=== PATIENT | female | born 1950 | race Caucasian/White ===

== ENCOUNTER 2019-10-17 14:57 | Outpatient (CLI) | payer MEDICARE ==
[~2019-10-17 14:57] MED LIST: Magnevist 469MG/ML 20 ML VIAL ONE
--- NOTE | 2019-10-17 16:46 | MRI ---
MRI Lumbar Spine with and without IVcontrast: HISTORY: Low back pain since falling in 2017. Vertebral body compression fractures. History of prior kyphoplas ty. COMPARISON: CT lumbar spine on 06/10/2019 FINDINGS: Increased T2-weighted signal intensity lesions are seen in the right kidney which do not demonstrate enhancement after the administration of intravenous contrast and are likely related to renal cysts. Remainder of the visualized retroperitoneal structures demonstrate a normal MRI appearance. Conus medullaris is normal in morphology and terminates at the L1 level. There are vertebroplasty changes seen involving the T11, T12, L2, L3, L4, and L5 vertebral bodies als o noted on the prior CT scan lumbar spine. A burst fracture of the L1 vertebral body is again seen with retropulsion of the posterior superior endplate of the vertebral body. There does appear to be s lightly greater degree of height loss involving the L1 vertebral body anteriorly and centrally. There is mild increased signal intensity seen on fluid sensitive sequences along the superior endplat e of the L1 vertebral body with corresponding decreased T1-weighted signal intensity suggesting edema. Findings are likely related to a chronic burst type fracture with superimposed more recent ass ociated compression fracture along the anterior endplate. The degree of height loss centrally is greater than 75%. T12-L1 level: Retropulsion of the anterior superior endplate is present as described above which effa dimitri the ventral subarachnoid space. Right neural foramen is present with minimal left neural foraminal narrowing. L1-2: Minimal disc osteophyte complex is present. Central spinal canal and neural foramina are patent at this level. L2-3: Loss of intervertebral disc height. Broad-based disc osteophyte complex is present with mild fa cet hypertrophic changes. Left neural foramen is patent with mild right-sided neural foraminal narrowing. There is no significant central canal narrowing present. L3-4: Disc osteophyte complex and facet hypertrophic changes are noted. There is prominence of the ep idural fat posteriorly. These findings result in severe narrowing of the thecal sac. Severe right-sided neural foraminal narrowing with mild to moderate left-sided neural foraminal narrowing is present. L4-5: Minimal disc osteophyte complex. Prominence of epidural fat is seen posteriorly. There is ligam entous thickening and prominent facet hypertrophic changes. Findings result in generalized concentric narrowing of the thecal sac which is [id number] in degree. L5-S1: Minimal disc osteophyte complex is present. Facet hypertrophic changes are noted. Findings res ult in mild left-sided neural foraminal narrowing. The right neural foramen and central canal are patent. There is minimal enhancement seen in the region of the marrow edema of the L1 vertebral body likely a ttributable to the edema and more recent nature of the fracture superimposed on more chronic burst fracture. No additional areas of abnormal enhancement are seen. IMPRESSION: 1. Burst fracture L1 vertebral body with questionable slight increase loss of height centrally. There is mild edema along the superior endplate L1 vertebral body suggesting a degree of more recent compression fracture superimposed on a chronic burst fracture. 2. Multilevel compression fractures of lower thoracic and lumbar vertebral bodies with evidence of pr ior vertebroplasty/kyphoplasty procedures. 3. Multilevel degenerative changes as described above.
== END 2019-10-17 14:58 | disposition home or self-care (01) ==
LOC: BICMRI 14:57
PROVIDERS: ATTEND Neurological Surgery
DX: S32.011A Stable burst fracture of first lumbar vertebra, initial encounter for closed fracture (principal); M47.816 Spondylosis without myelopathy or radiculopathy, lumbar region; R60.0 Localized edema
CPT/HCPCS: 72158; 82565; A9579

== ENCOUNTER 2020-07-30 13:11 | Outpatient (CLI) | payer MEDICARE ==
--- NOTE | 2020-07-30 14:41 | MRI ---
MRI LUMBAR SPINE NONCONTRAST: HISTORY: Lumbar compression fracture. Previous vertebroplasty. Pain x20 years. COMPARISON: 10/17/2019 FINDINGS: There are T1 and T2 hypointense lesions at T11, T12, L1, L2, L3, L4 and L5 compatible with previous v ertebroplasty change. When compared to the prior exam, vertebral body height is maintained. There is no fracture. There is edema involving the superior aspect of T12 and anterior aspect of L1. Is appropriate signal intensity visualized paraspinal muscles. Multiple right renal cortical cysts ar e noted. Conus medullaris terminates at the T12-L1 disc space. T12-L1:Disc desiccation with mild loss of disc space height. No significant central canal stenosis. M oderate bilateral neural foraminal narrowing L1 vertebral body: Retropulsion with resultant mild to moderate central canal stenosis. L1-L2:Adequate disc hydration. No significant posterior disc abnormality. No significant central selma l stenosis. Moderate bilateral neural foraminal narrowing. L2 vertebral body: Mild retropulsion due to loss of vertebral body height, unchanged. L2-L3:Stable desiccation with mild loss of disc space height. Broad-based disc bulge, ligament flavum thickening and facet hypertrophy result in moderate central canal stenosis. Moderate right and [id number] left neural foraminal narrowing. L3-L4:Adequate disc hydration. No significant loss of disc space height. Broad-based disc bulge, liga ment flavum thickening and facet hypertrophy result in moderate central canal stenosis. Moderate to severe right and moderate left neural foraminal narrowing. L4-L5:Adequate disc hydration. No significant loss of disc space height. Broad-based disc bulge, liga ment flavum thickening and facet appears result in mild central canal stenosis. Moderate bilateral neural foraminal narrowing. L5-S1:Adequate disc hydration. No posterior disc abnormalities. There is bilateral facet hypertrophy. No significant central canal stenosis. Right neural foramen is patent. Mild left foraminal narrowing. IMPRESSION: 1. Redemonstration of extensive vertebroplasty from T11 through L5. Stable loss of vertebral body hei ght and retropulsion at L1 and L2. 2. Varying degrees of central canal stenosis and neural foraminal narrowing as detailed above. Transcribed Date/Time: 07/30/2020 3:31 PM
== END 2020-07-30 13:12 | disposition home or self-care (01) ==
LOC: BICMRI 13:11
PROVIDERS: ATTEND Anesthesiology Pain Medicine
DX: S32.009A Unspecified fracture of unspecified lumbar vertebra, initial encounter for closed fracture (principal); M48.061 Spinal stenosis, lumbar region without neurogenic claudication
CPT/HCPCS: 72148

== ENCOUNTER 2020-12-21 13:58 | Outpatient (CLI) | payer MEDICARE ==
[2020-12-21 15:51] LABS: Hemoglobin 12.7 g/dL (12.0-15.5); Mean Corpuscular HGB CONC 32.8 g/dL (32.0-36.0); Mean Corpuscular Hemoglobin 30.2 pg (27.0-33.0); Mean Corpuscular Volume 92.1 fl (81.6-98.3); Mean Platelet Volume 12.8 fl (7.4-10.4); Platelet Count 264 10x3/uL (150-450); RBC Distribution Width 14.7 % (11.5-14.5); White Blood Cell (WBC) Count 8.8 10x3/uL (3.5-10.5)
[2020-12-21 15:59] LABS: Anion Gap 17 mmol/L (10-20); BUN (Urea Nitrogen) 17 mg/dL (9.8-20.1); Calc. Creatinine Clearance 0 mL/min (70-130); Calcium 9.8 mg/dL (7.8-10.44); Carbon Dioxide 26 mmol/L (23-31); Chloride 102 mmol/L (98-107); Glucose 175 mg/dL (83-110); Potassium 4.6 mmol/L (3.5-5.1); Sodium 140 mmol/L (136-145)
[2020-12-22 12:11] LABS: SARS-CoV-2 PCR by NAA Not Detected (NotDetected)
== END 2020-12-21 13:59 | disposition home or self-care (01) ==
LOC: LABBT 13:58
PROVIDERS: ATTEND Neurological Surgery
DX: Z01.818 Encounter for other preprocedural examination (principal); M54.16 Radiculopathy, lumbar region; Z20.822 Contact with and (suspected) exposure to COVID-19
CPT/HCPCS: 80048; 85027; 93005; U0003; U0005; 93010

== ENCOUNTER 2020-12-26 06:47 | Day surgery (SDC) | payer MEDICARE | END 2020-12-26 14:00 | disposition home or self-care (01) | LOC: SDC 06:47 | PROVIDERS: ATTEND Neurological Surgery | PROC: 01NB0ZZ Release Lumbar Nerve, Open Approach (ICD-10-PCS; principal; 2020-12-26) | DX: M54.16 Radiculopathy, lumbar region (principal); G89.29 Other chronic pain; D53.9 Nutritional anemia, unspecified; E11.9 Type 2 diabetes mellitus without complications; I48.91 Unspecified atrial fibrillation; I10 Essential (primary) hypertension; M81.0 Age-related osteoporosis without current pathological fracture; F17.200 Nicotine dependence, unspecified, uncomplicated; Z86.73 Personal history of transient ischemic attack (TIA), and cerebral infarction without residual deficits; Z79.01 Long term (current) use of anticoagulants; Z79.82 Long term (current) use of aspirin; Z79.84 Long term (current) use of oral hypoglycemic drugs; Z79.899 Other long term (current) drug therapy; Z88.5 Allergy status to narcotic agent; Z88.6 Allergy status to analgesic agent; Z88.8 Allergy status to other drugs, medicaments and biological substances; Z98.890 Other specified postprocedural states | CPT/HCPCS: 76000; J0171; J0690; J1100; J1885; J2270; J2405; J2704; J3010; S0020 ==

== ENCOUNTER 2024-05-03 18:58 | Inpatient (IN) | payer MEDICARE ==
[2024-05-03 20:06] LABS: Hematocrit 48.3 % (36.0-47.0); Hemoglobin 16.9 g/dL (12.0-16.0); Mean Corpuscular Hemoglobin 33.6 pg (27.0-31.0); Platelet Count 140 10x3/uL (130-400); RBC Distribution Width 17.5 % (11.5-14.5); Red Blood Cell (RBC) Count 5.03 mill/uL (4.20-5.40)
[2024-05-03 20:29] LABS: Troponin I 6.367 ng/mL (< 0.028)
[2024-05-03] MEDS ORDERED: NOREPINEPHRINE 8 MG/250 ML-D5W 250 ML ONE (20:34)
[2024-05-03] MEDS ORDERED: Vancomycin 1 GM/200 ML (FROZEN) BAG ONE (20:35)
[2024-05-03 20:42] LABS: Anisocytosis SLIGHT = 6-15 cells HPF (0-5); Band 17 % (5-11); Burr Cells SLIGHT = 2-5 cells HPF (0-1); Large Platelets 2.9 % (0-5); Lymphocytes 1 % (21-51); Neutrophil 82 % (42-75); Ovalocytes SLIGHT = 2-5 cells HPF (0-1); Platelet Adequacy Comment Platelets Normal; Polychromasia SLIGHT = 2-3 cells HPF (0-2); Target Cells SLIGHT = 2-5 cells HPF (0-1); Tear Drops SLIGHT = 2-5 cells HPF (0-1)
[2024-05-03 21:27] LABS: INR-International Normal Ratio 1.7; PTT 24.2 sec (22.9-36.1); Prothrombin Time 20.1 sec (12.0-14.7)
[2024-05-03 21:30] LABS: ALT (SGPT) 67 U/L (8-55); AST (SGOT) 89 U/L (5-34); Albumin 2.8 g/dL (3.4-4.8); Alkaline Phosphatase 75 U/L (40-110); Anion Gap 19 mmol/L (10-20); BUN (Urea Nitrogen) 36 mg/dL (9.8-20.1); Bilirubin, Total 1.5 mg/dL (0.2-1.2); Calc. Creatinine Clearance 0 mL/min (70-130); Calcium 8.8 mg/dL (7.8-10.44); Carbon Dioxide 21 mmol/L (23-31); Chloride 98 mmol/L (98-107); Estimated GFR 25; Globulin 3.3 g/dL (2.4-3.5); Glucose 137 mg/dL (83-110); Magnesium 1.8 mg/dL (1.6-2.6); Potassium 4.4 mmol/L (3.5-5.1); Protein, Total 6.1 g/dL (5.8-8.1); Sodium 134 mmol/L (136-145)
[2024-05-03] MEDS ORDERED: Heparin 25,000 units/D5W 500 ML ONE (22:38)
[2024-05-03] MEDS ORDERED: Heparin 5,000 UNITS/ML VIAL ONE (22:38)
[2024-05-03 23:01] LABS: Bilirubin Negative (Negative); Blood, Urine 1+ (Negative); CAUTI Indications for Culture Pelvic or flank pain; Clarity Extra Turbid (Clear); Glucose, Urine (Dipstick) 30 mg/dL (Negative); Ketone, Urine Trace mg/dL (Negative); Leukocyte 500 Leu/uL (Negative); Nitrite Negative (Negative); Protein, Urine (Dipstick) 50 mg/dL (Neg-Trace); Squamous Epithelial 0-3 HPF (0-3); Urobilinogen Normal mg/dL (Less than 2); WBC/HPF Greater than 50 HPF (0-3)
[2024-05-03 23:03] LABS: Bacteria/HPF 3+ HPF (None Seen)
[2024-05-03 23:04] LABS: Actual Bicarbonate (HCO3a) 18.8 mEq/L (22-28); Analyzer IN Cardio ER; Base Excess (BEa) -4.4 mEq/L (-2.0 to +3.0); CO2 Tension 30.1 mmHg (35.0-45.0); Calcium, Ionized (arterial) 1.11 mmol/L (1.12-1.30); Carboxyhemoglobin (COHb) 0.5 gm% (0.0-3.0); Hematocrit-ABG 45 % (36.0-47.0); Hemoglobin (Hb) 15.3 g/dL (12.0-16.0); O2 Tension (PaO2), arterial 80.6 mmHg (> 70.0); Potassium - ABG Lab 4.18 mmol/L (3.70-5.30); pH, Arterial 7.413 (7.35-7.45)
[2024-05-03 23:05] LABS: Renal Epithelial 0-3 HPF (None Seen)
[2024-05-03 23:06] LABS: ALV-art Gradient 309.575 mmHg (0-20); Puncture Site Left Radial artery
[2024-05-03 23:07] LABS: Urine Culture Reflex Yes Yes
[2024-05-03 23:35] LABS: Lactic Acid 4.34 mmol/L (0.5-2.2)
[2024-05-04] MEDS ORDERED: Acetaminophen 325 MG (10.15 ML) UDCUP PO PRN (00:57)
[2024-05-04] MEDS ORDERED: Acetaminophen 650 MG Suppository PR PRN (00:57)
[2024-05-04] MEDS ORDERED: Vasopressin 20 UNITS in Sodium Chloride 0.9% 50 ML IV PRN (00:57)
[2024-05-04] MEDS ORDERED: Dextrose 50% Abboject 50 ML SYRINGE SLOW IVP PRN (01:01)
[2024-05-04] MEDS ORDERED: Dextrose 5% in Water 1,000 ML IV PRN (01:01)
[2024-05-04] MEDS ORDERED: Glucagon 1 MG/ML KIT IM PRN (01:01)
[2024-05-04] MEDS ORDERED: Ondansetron ODT 4 MG TAB PO PRN (01:03)
[2024-05-04] MEDS ORDERED: Vasopressin In 0.9 % NaCl 40 UNIT in Premix 1 BAG IV SCH ×2 (01:15→17:30)
[2024-05-04] MEDS ORDERED: Amiodarone 150 MG, Admixture Fee 1 EACH in Dextrose 5% in Water 100 ML IVPB SCH (01:30)
[2024-05-04] MEDS: Amiodarone 450 MG in Dextrose 5% in Water 250 ML IVPB SCH (01:50)
[2024-05-04] MEDS: Cefepime 1 GM in Sodium Chloride 0.9% 100 ML IVPB SCH (02:11)
[2024-05-04] MEDS: Hydrocortisone Sod Succ/PF 100 mg/2 ml Vial IVP SCH ×2 (02:11→08:13)
[2024-05-04 02:14] VITALS: BMI 25.2
[2024-05-04] MEDS ORDERED: Vancomycin Dose by Levels Sliding Scale (Wt 71-99) FS SCH (02:30)
[2024-05-04] MEDS: Vancomycin HCl 500 MG in Sodium Chloride 0.9% 100 ML IVPB SCH (03:16)
[2024-05-04 03:17] LABS: Hematocrit 40.8 % (36.0-47.0); Platelet Count 125 10x3/uL (130-400)
[2024-05-04 03:38] LABS: Hemoglobin A1c 6.2 % (4.0-6.0)
[2024-05-04 03:53] LABS: Critical Call Chem Troponin I DECREASING; Troponin I 5.701 ng/mL (< 0.028)
[2024-05-04 04:02] LABS: PTT 241.1 sec (22.9-36.1)
[2024-05-04 04:11] LABS: Lactic Acid 4.95 mmol/L (0.5-2.2)
[2024-05-04 04:49] LABS: Magnesium 1.7 mg/dL (1.6-2.6)
[2024-05-04 05:24] LABS: PTT 120.9 sec (22.9-36.1)
[2024-05-04] MEDS: Sodium Bicarb 50 MEQ/50 ML Abboject 8.4% SYRINGE IVP SCH (06:23)
[2024-05-04] MEDS: Acetaminophen 325 MG TAB PO SCH (06:23)
[2024-05-04] MEDS: Furosemide 40 MG (4 mL) VIAL SLOW IVP SCH (06:24)
[2024-05-04 08:11] LABS: Critical Call Chem Troponin I RESULT DECREASING; Troponin I 5.368 ng/mL (< 0.028)
[2024-05-04] MEDS: Famotidine 20 MG TAB PO SCH (08:13)
[2024-05-04] MEDS: Ondansetron PF 4 MG/2 ML Vial IVP PRN (08:13)
[2024-05-04] MEDS: Famotidine/PF 20 mg/2ml Vial SLOW IVP SCH (08:13)
[2024-05-04] MEDS ORDERED: Vancomycin 1.5 GRAM/300 ML BAG IVPB SCH (09:00)
[2024-05-04] MEDS: Albumin 25% 25 GM (100 mL) BOT IVPB SCH ×2 (10:22→17:23)
[2024-05-04 10:38] LABS: Lactic Acid 8.01 mmol/L (0.5-2.2)
[2024-05-04] MEDS: DOBUTamine 500 mg/250 ml 500 MG in Premix 1 BAG IVPB SCH (10:52)
[2024-05-04] MEDS: Magnesium 2 GM/50 ML(in water) 2 GM in Premix 1 BAG IVPB SCH (10:52)
[2024-05-04] MEDS: Sodium Chloride 0.9% 500 ML IV SCH ×2 (10:52→14:49)
[2024-05-04] MEDS: Heparin 10,000 UNITS/ 10 ML VIAL SLOW IVP SCH (11:16)
[2024-05-04] MEDS: NOREPINEPHRINE 8 MG/250 ML-D5W 250 ML IVPB PRN (11:31)
[2024-05-04] MEDS: Morphine 4 MG/ML VIAL ONE (14:57)
[2024-05-04 15:34] LABS: Base Excess (BEa) -6.8 mEq/L (-2.0 to +3.0); CO2 Tension 33.6 mmHg (35.0-45.0); Calcium, Ionized (arterial) 1.03 mmol/L (1.12-1.30); Carboxyhemoglobin (COHb) 0.8 gm% (0.0-3.0); Hematocrit-ABG 36 % (36.0-47.0); Hemoglobin (Hb) 12.3 g/dL (12.0-16.0); O2 Tension (PaO2), arterial 69.4 mmHg (> 70.0); Potassium - ABG Lab 3.34 mmol/L (3.70-5.30); pH, Arterial 7.346 (7.35-7.45)
[2024-05-04 15:35] LABS: Puncture Site Right Radial artery
[2024-05-04] MEDS: Nicotine 14 MG PATCH TD SCH (15:54)
[2024-05-04] MEDS: Lactated Ringer's 1,000 ML IV SCH (15:59)
[2024-05-04 16:03] LABS: ALT (SGPT) 42 U/L (8-55); AST (SGOT) 44 U/L (5-34); Albumin 2.5 g/dL (3.4-4.8); Alkaline Phosphatase 48 U/L (40-110); Anion Gap 17 mmol/L (10-20); BUN (Urea Nitrogen) 41 mg/dL (9.8-20.1); Calc. Creatinine Clearance 27 mL/min (70-130); Calcium 7.4 mg/dL (7.8-10.44); Carbon Dioxide 19 mmol/L (23-31); Chloride 99 mmol/L (98-107); Estimated GFR 25; Globulin 2.1 g/dL (2.4-3.5); Glucose 210 mg/dL (83-110); Potassium 3.3 mmol/L (3.5-5.1); Protein, Total 4.6 g/dL (5.8-8.1); Sodium 132 mmol/L (136-145)
[2024-05-04] MEDS ORDERED: Electrolyte Replacement Protocol 1 EACH FS SCH (17:01)
[2024-05-04] MEDS: metroNIDAZOLE 500 MG in Premix 1 BAG IVPB SCH ×2 (17:11→22:29)
[2024-05-04] MEDS: Albumin 25% 100 ML ONE (17:25)
[2024-05-04 18:21] LABS: Anisocytosis SLIGHT = 6-15 cells HPF (0-5); Band 39 % (5-11); Large Platelets 17.4 % (0-5); Lymphocytes 6 % (21-51); Metamyelocyte 1 % (0-0); Monocytes 1 % (0-10); Neutrophil 53 % (42-75); Nucleated RBC (Manual Ct) 2 % (0); Platelet Adequacy Comment Platelets Decreased; Poikilocytosis SLIGHT = 6-15 cells HPF (0-5)
[2024-05-04 18:38] LABS: Hematocrit 34.6 % (36.0-47.0); Hemoglobin 12.2 g/dL (12.0-16.0); Mean Corpuscular HGB CONC 35.3 g/dL (32.0-36.0); Mean Corpuscular Hemoglobin 33.3 pg (27.0-31.0); Mean Corpuscular Volume 94.5 fL (78.0-98.0); Platelet Count 101 10x3/uL (130-400); RBC Distribution Width 16.7 % (11.5-14.5); Red Blood Cell (RBC) Count 3.66 mill/uL (4.20-5.40)
[2024-05-04 19:29] LABS: Lactic Acid 4.28 mmol/L (0.5-2.2)
[2024-05-04] MEDS: Potassium Chloride 20 MEQ in Premix 1 BAG IVPB SCH (19:32)
[2024-05-04 21:24] LABS: Vancomycin, Trough 18.2 ug/mL
[2024-05-04 21:26] LABS: ALT (SGPT) 39 U/L (8-55); AST (SGOT) 38 U/L (5-34); Alkaline Phosphatase 44 U/L (40-110); Anion Gap 17 mmol/L (10-20); BUN (Urea Nitrogen) 46 mg/dL (9.8-20.1); Bilirubin, Total 2.4 mg/dL (0.2-1.2); Calc. Creatinine Clearance 27 mL/min (70-130); Calcium 7.3 mg/dL (7.8-10.44); Carbon Dioxide 19 mmol/L (23-31); Chloride 98 mmol/L (98-107); Estimated GFR 25; Globulin 2.1 g/dL (2.4-3.5); Glucose 239 mg/dL (83-110); Potassium 4.4 mmol/L (3.5-5.1); Protein, Total 5.1 g/dL (5.8-8.1); Sodium 130 mmol/L (136-145)
[2024-05-04 22:08] LABS: Lactic Acid 3.49 mmol/L (0.5-2.2)
[2024-05-04] MEDS: Vancomycin HCl 500 MG in Sodium Chloride 0.9% 100 ML IV SCH (22:30)
[2024-05-04 23:41] LABS: Hematocrit 33.1 % (36.0-47.0); Hemoglobin 11.4 g/dL (12.0-16.0); Platelet Count 103 10x3/uL (130-400)
[2024-05-05] MEDS: Heparin 25,000 units/D5W 500 ML IVPB SCH (03:07)
[2024-05-05] MEDS ORDERED: Glycopyrrolate 0.2 MG/ML 5 ML SYRINGE SLOW IVP PRN (04:41)
[2024-05-05 05:18] LABS: Hemoglobin 10.8 g/dL (12.0-16.0); Mean Corpuscular HGB CONC 34.8 g/dL (32.0-36.0); Mean Corpuscular Hemoglobin 33.3 pg (27.0-31.0); Mean Corpuscular Volume 95.7 fL (78.0-98.0); Mean Platelet Volume 14.5 fL (7.4-10.4); Platelet Count 117 10x3/uL (130-400); RBC Distribution Width 16.8 % (11.5-14.5); Red Blood Cell (RBC) Count 3.24 mill/uL (4.20-5.40)
[2024-05-05] MEDS ORDERED: GLYCOPYRROLATE/PF 0.2 MG/ML VIAL SLOW IVP PRN (05:22)
[2024-05-05 05:29] LABS: ALT (SGPT) 36 U/L (8-55); AST (SGOT) 34 U/L (5-34); Albumin 3.2 g/dL (3.4-4.8); Alkaline Phosphatase 40 U/L (40-110); Anion Gap 17 mmol/L (10-20); BUN (Urea Nitrogen) 46 mg/dL (9.8-20.1); Bilirubin, Total 2.9 mg/dL (0.2-1.2); Calc. Creatinine Clearance 26 mL/min (70-130); Calcium 7.7 mg/dL (7.8-10.44); Carbon Dioxide 17 mmol/L (23-31); Chloride 99 mmol/L (98-107); Estimated GFR 24; Globulin 1.9 g/dL (2.4-3.5); Glucose 247 mg/dL (83-110); Magnesium 2.2 mg/dL (1.6-2.6); Potassium 4.1 mmol/L (3.5-5.1); Protein, Total 5.1 g/dL (5.8-8.1); Sodium 129 mmol/L (136-145)
[2024-05-05 05:38] LABS: Lactic Acid 6.23 mmol/L (0.5-2.2)
[2024-05-05 05:51] LABS: Anisocytosis SLIGHT = 6-15 cells HPF (0-5); Band 30 % (5-11); Burr Cells MODERATE= 6-15 cells HPF (0-1); Giant Platelets 17.3 % (0-5); Lymphocytes 5 % (21-51); Metamyelocyte 9 % (0-0); Monocytes 4 % (0-10); Myelocyte 2 % (0-0); Neutrophil 33 % (42-75); Nucleated RBC (Manual Ct) 2 % (0); Platelet Adequacy Comment Platelets Decreased; Poikilocytosis SLIGHT = 6-15 cells HPF (0-5); Polychromasia SLIGHT = 2-3 cells HPF (0-2); Target Cells SLIGHT = 2-5 cells HPF (0-1); Toxic Granulation SLIGHT; Vacuoles MODERATE
[2024-05-05] MEDS: Glycopyrrolate 0.4 MG/ 2 ML VIAL SLOW IVP PRN (06:10)
[2024-05-05] MEDS: Scopolamine 1 mg/72 hour Patch TD SCH (06:31)
[2024-05-05] MEDS: Morphine 2 MG/ML VIAL SLOW IVP PRN ×2 (08:23→12:08)
[2024-05-05] MEDS: Famotidine 20 MG TAB PO SCH (09:06)
[2024-05-05] MEDS: Digoxin 0.5 MG/2 ML AMP SLOW IVP SCH (09:07)
[2024-05-05] MEDS ORDERED: Furosemide 40 MG (4 mL) VIAL SLOW IVP SCH (10:30)
[2024-05-05] MEDS ORDERED: Digoxin 0.5 MG/2 ML AMP SLOW IVP SCH (13:00)
[2024-05-05] MEDS: Lorazepam 2 MG/ML VIAL SLOW IVP PRN (16:23)
[2024-05-05] MEDS: Morphine 4 MG/ML VIAL SLOW IVP PRN (21:14)
[2024-05-06] MEDS ORDERED: Furosemide 40 MG (4 mL) VIAL SLOW IVP SCH (06:00)
[2024-05-06] MEDS ORDERED: Glycopyrrolate 0.2 MG/ML 5 ML SYRINGE SLOW IVP ONE (08:31)
[2024-05-06] MEDS ORDERED: Digoxin 0.5 MG/2 ML AMP SLOW IVP SCH (09:00)
[2024-05-06] MEDS: Glycopyrrolate 0.4 MG/ 2 ML VIAL SLOW IVP SCH (09:02)
[2024-05-06 09:08] VITALS: BP 94/63; TEMP 98.7
[2024-05-06 10:53] VITALS: BMI 26.5
== END 2024-05-06 11:36 | disposition expired | DRG 871 ==
LOC: ERS 18:58 → CCU 23:52 → MSONC 05-05 15:26
PROVIDERS: ADMIT Student in an Organized Health Care Education/Training Program; ATTEND Internal Medicine
PROC: 02HV33Z Insertion of Infusion Device into Superior Vena Cava, Percutaneous Approach (ICD-10-PCS; principal; 2024-05-03)
PROC: B548ZZA Ultrasonography of Superior Vena Cava, Guidance (ICD-10-PCS; 2024-05-03)
PROC: 4A133R1 Monitoring of Arterial Saturation, Peripheral, Percutaneous Approach (ICD-10-PCS; 2024-05-03)
PROC: 3E033XZ Introduction of Vasopressor into Peripheral Vein, Percutaneous Approach (ICD-10-PCS; 2024-05-03)
PROC: 3E043XZ Introduction of Vasopressor into Central Vein, Percutaneous Approach (ICD-10-PCS; 2024-05-03)
PROC: 3E03329 Introduction of Other Anti-infective into Peripheral Vein, Percutaneous Approach (ICD-10-PCS; 2024-05-03)
PROC: 3E04329 Introduction of Other Anti-infective into Central Vein, Percutaneous Approach (ICD-10-PCS; 2024-05-03)
PROC: 0T9B70Z Drainage of Bladder with Drainage Device, Via Natural or Artificial Opening (ICD-10-PCS; 2024-05-03)
PROC: 30233J1 Transfusion of Nonautologous Serum Albumin into Peripheral Vein, Percutaneous Approach (ICD-10-PCS; 2024-05-04)
PROC: 30243J1 Transfusion of Nonautologous Serum Albumin into Central Vein, Percutaneous Approach (ICD-10-PCS; 2024-05-04)
DX: A41.9 Sepsis, unspecified organism (principal); I21.A1 Myocardial infarction type 2; I50.43 Acute on chronic combined systolic (congestive) and diastolic (congestive) heart failure; R65.21 Severe sepsis with septic shock; J96.01 Acute respiratory failure with hypoxia; N39.0 Urinary tract infection, site not specified; N17.9 Acute kidney failure, unspecified; E87.20 Acidosis, unspecified; I42.9 Cardiomyopathy, unspecified; E87.1 Hypo-osmolality and hyponatremia; I13.0 Hypertensive heart and chronic kidney disease with heart failure and stage 1 through stage 4 chronic kidney disease, or unspecified chronic kidney disease; Z66 Do not resuscitate; Z51.5 Encounter for palliative care; I48.0 Paroxysmal atrial fibrillation; R57.0 Cardiogenic shock; R74.01 Elevation of levels of liver transaminase levels; G89.29 Other chronic pain; M54.50 Low back pain, unspecified; E78.5 Hyperlipidemia, unspecified; E11.22 Type 2 diabetes mellitus with diabetic chronic kidney disease; N18.9 Chronic kidney disease, unspecified; E80.6 Other disorders of bilirubin metabolism; E87.6 Hypokalemia; Z79.84 Long term (current) use of oral hypoglycemic drugs; Z79.899 Other long term (current) drug therapy; Z86.73 Personal history of transient ischemic attack (TIA), and cerebral infarction without residual deficits; Z79.01 Long term (current) use of anticoagulants; Z88.5 Allergy status to narcotic agent; Z88.8 Allergy status to other drugs, medicaments and biological substances; Z98.890 Other specified postprocedural states
CPT/HCPCS: 36415; 36416; 36556; 36600; 51702; 71045; 74018; 76705; 80053; 80202; 81001; 82533; 82805; 83036; 83605; 83690; 83735; 83880; 84145; 84443; 84484; 85014; 85018; 85025; 85049; 85610; 85730; 86765; 87086; 93005; 93306; 94660; 96365; 96366; 96368; 96376; J0282; J0692; J1160; J1250; J1644; J1720; J1940; J2060; J2272; J2405; J3370; J3370-JW; J3475; J3480; J3490; J7030; J7070; J7120; P9047